=== PATIENT | male | born 1965 | race Caucasian/White ===

== ENCOUNTER 2017-09-06 07:41 | Day surgery (SDC) | payer OTHER ==
[2017-09-04 09:11] VITALS: BMI 30.7
[~2017-09-06 07:41] MED LIST: LACTATED RINGERS 1,000 ML IV SCH
[2017-09-06 08:12] VITALS: TEMP 97.9
[2017-09-06] MEDS ORDERED: LIDOCAINE 1% 20 ML VIAL (10MG/ML) FOR IV START INTRADERMA ONE (08:12)
[2017-09-06] MEDS ORDERED: LIDOCAINE 1% INJ 10MG/ML (20 ML MDV) ONE (08:32)
[2017-09-06] MEDS ORDERED: PROPOFOL 10 MG/ML 20 ML VIAL IV ONE (08:32)
--- NOTE | 2017-09-06 08:50 | P.PCN ---
Date of Procedure: 09/06/17 Procedure(s) Performed: BRIEF HISTORY: Patient is a 52-year-old pleasant white male, scheduled for an elective colonoscopy as a part of screening for colonic neoplasia. He has history of Crohn's disease diagnosed about 15 years ago last colonoscopy was several years ago. He remains in clinical remission. PROCEDURE PERFORMED: Colonoscopy with biopsy PREOPERATIVE DIAGNOSIS: Screening for colon cancer. IV sedation per Anesthesia. PROCEDURE: After informed consent was obtained, the patient, was brought into the endoscopy unit. IV sedation was administered by Anesthesia under continuous monitoring. Digital rectal examination was normal. Initially the Olympus CF- 160 flexible video colonoscope was then inserted in the rectum, gradually advanced into the right colon without any difficulty and the ileocolonic anastomosis was visualized. The anastomotic site appeared slightly narrowed with a few scattered erosions consistent with recurrent Crohn's disease. Biopsies were done from this area. The scope was advanced into the distal ileum that appeared normal. The mucosa of the ascending colon, transverse colon , descending colon, sigmoid colon, and rectum appeared normal. Retroflexion was performed in the rectum and no lesions were seen. The patient tolerated the procedure well. IMPRESSION: Mild narrowing of the ileocolonic anastomosis in the right colon with scattered erosions consistent with recurrent Crohn's disease Colon appeared normal with no evidence of colorectal neoplasia. RECOMMENDATIONS: Findings of this examination were discussed with the patient as well as his family. He was advised to follow with the biopsy results. He can have a repeat colonoscopy in 3-5 years
[2017-09-06 09:11] VITALS: BP 115/74; PULSE 66; RESP 16
== END 2017-09-06 09:51 | disposition home or self-care (01) ==
LOC: ORWHC2ENDO 07:41
PROVIDERS: ATTEND Internal Medicine Gastroenterology
DX: Z12.11 Encounter for screening for malignant neoplasm of colon (principal); K52.9 Noninfective gastroenteritis and colitis, unspecified; K50.90 Crohn's disease, unspecified, without complications; J45.909 Unspecified asthma, uncomplicated; K21.9 Gastro-esophageal reflux disease without esophagitis; Z79.899 Other long term (current) drug therapy
CPT/HCPCS: 88305; 45380; J2001; J2704

== ENCOUNTER 2021-10-13 20:11 | Emergency (ER) | payer OTHER ==
[2021-10-13 20:31] VITALS: BP 143/89; PULSE 72; RESP 18; TEMP 98.8
--- NOTE | 2021-10-13 21:38 | US ---
EXAMINATION TYPE: US venous doppler duplex LE RT DATE OF EXAM: 10/13/2021 9:25 PM COMPARISON: NONE CLINICAL HISTORY: swelling. Right lower extremity swelling for 1 day SIDE PERFORMED: Right TECHNIQUE: The lower extremity deep venous system is examined utilizing real time linear array sonog bo with graded compression, doppler sonography and color-flow sonography. VESSELS IMAGED: Common Femoral Vein Deep Femoral Vein Greater Saphenous Vein * Femoral Vein Popliteal Vein Small Saphenous Vein * Proximal Calf Veins (* superficial vessels) Right Leg: Negative for DVT IMPRESSION: No evidence of right lower extremity DVT.
--- NOTE | 2021-10-13 23:33 | ED ---
Lower Extremity Injury HPI - General Chief Complaint: Extremity Injury, Lower Stated Complaint: Swelling in RT leg Time Seen by Provider: 10/13/21 22:56 Source: patient Mode of arrival: ambulatory - History of Present Illness Initial Comments: Patient is a 56-year-old male presenting for evaluation of right leg swelling. Swelling is most prominent at the knee, but is notable along the entire course of the leg. Patient states he feels discomfort at the knee but not a distinct pain. He notes it feels like a "tightness" due to the swelling. Has been taking Advil which helps with pain with swelling. Last took 400mg advil at 6pm. Denies any recent injury. Patient states that his knee has been "bothering him" for a couple days now due to the nature of his job where he is frequently on his feet. Denies fever, chills, redness, loss of range of motion, numbness, tingling, chest pain, shortness of breath, palpitations, headache, vision or hearing changes, abdominal pain, nausea, vomiting, diarrhea. - Related Data Home Medications Medication Instructions Recorded Confirmed Albuterol Sulfate [Albuterol 2 puff INHALATION RT-Q4H PRN 10/13/21 10/13/21 Sulfate Hfa] Omeprazole Magnesium [PriLOSEC OTC] 20 mg PO DAILY PRN 10/13/21 10/13/21 Allergies Allergy/AdvReac Type Severity Reaction Status Date / Time No Known Allergies Allergy Verified 10/13/21 23:34 Review of Systems ROS Statement: Those systems with pertinent positive or pertinent negative responses have been documented in the HPI. ROS Other: All systems not noted in ROS Statement are negative. Past Medical History Past Medical History: GERD/Reflux Additional Past Medical History / Comment(s): Crohn's Disease,sob History of Any Multi-Drug Resistant Organisms: None Reported Past Surgical History: Bowel Resection Additional Past Surgical History / Comment(s): bowel [id number] Past Anesthesia/Blood Transfusion Reactions: No Reported Reaction Past Psychological History: No Psychological Hx Reported Smoking Status: Never smoker Past Alcohol Use History: None Reported Past Drug Use History: None Reported - Past Family History Mother Family Medical History: No Reported History General Exam Limitations: no limitations General appearance: alert, in no apparent distress Head exam: Present: atraumatic, normocephalic, normal inspection Eye exam: Present: normal appearance, PERRL, EOMI. Absent: scleral icterus, conjunctival injection, periorbital swelling Neck exam: Present: normal inspection Respiratory exam: Present: normal lung sounds bilaterally. Absent: respiratory distress, wheezes, rales, rhonchi, stridor Cardiovascular Exam: Present: regular rate, normal rhythm, normal heart sounds. Absent: systolic murmur, diastolic murmur, rubs, gallop, clicks Extremities exam: Present: full ROM, normal capillary refill, joint swelling (mild swelling of R knee). Absent: tenderness, pedal edema, calf tenderness Right Upper Leg exam: Present: normal inspection, full ROM. Absent: tenderness Knee exam: Present: full ROM, tenderness (mild), swelling, effusion, full knee extension. Absent: abrasion, laceration, ecchymosis, deformity, crepitus, dislocation, erythema Lower Leg exam: Present: full ROM, swelling (mild). Absent: tenderness, abrasion, erythema Ankle exam: Present: normal inspection, full ROM. Absent: tenderness, swelling Neurovascular tendon exam: Present: no vascular compromise. Absent: sensory deficit Back exam: Present: normal inspection. Absent: tenderness, paraspinal tenderness, vertebral tenderness Neurological exam: Present: alert, oriented X3, CN II-XII intact Psychiatric exam: Present: normal affect, normal mood Skin exam: Present: warm, dry, intact, normal color. Absent: rash Course Vital Signs 10/13/21 20:29 Temperature 98.8 F Pulse Rate 72 Respiratory 18 Rate Blood Pressure 143/89 O2 Sat by Pulse 95 Oximetry Medical Decision Making - Medical Decision Making Patient is a 56-year-old male presenting with chief complaint of right leg swelling. Swelling is localized around the knee with minor swelling above and below. There is some discomfort. No redness, recent injury, puncture wound, fever, chills, tachycardia. On exam there is full range of motion, neurovascularly intact. Doppler of right leg was negative for DVT. Lab work was negative for gout for infection. X-ray show no acute fracture or dislocation. Discomfort and swelling likely due to overuse injury. Patient follows up with orthopedics and was instructed to follow-up in one to 2 days. Take Motrin and Tylenol at home as needed for pain control. Educated patient on rest, ice, compression, elevation. Provided patient with Edy wrap. Thoroughly discussed return parameters. Answered all questions. Patient conveyed verbal understanding and agreed to the plan. My attending was Dr. Evangelista. - Lab Data Result diagrams: 10/13/21 23:04 10/13/21 23:04 Lab Results 10/13/21 10/13/21 Range/Units 23:04 23:04 WBC 7.5 (3.8-10.6) k/uL RBC 4.59 (4.30-5.90) m/uL Hgb 15.1 (13.0-17.5) gm/dL Hct 44.1 (39.0-53.0) % MCV 96.1 (80.0-100.0) fL MCH 32.8 (25.0-35.0) pg MCHC 34.2 (31.0-37.0) g/dL RDW 12.5 (11.5-15.5) % Plt Count 235 (150-450) k/uL MPV 7.1 Neutrophils % 57 % Lymphocytes % 24 % Monocytes % 10 % Eosinophils % 4 % Basophils % 1 % Neutrophils # 4.3 (1.3-7.7) k/uL Lymphocytes # 1.8 (1.0-4.8) k/uL Monocytes # 0.7 (0-1.0) k/uL Eosinophils # 0.3 (0-0.7) k/uL Basophils # 0.1 (0-0.2) k/uL Sodium 139 (137-145) mmol/L Potassium 4.3 (3.5-5.1) mmol/L Chloride 105 (98-107) mmol/L Carbon Dioxide 22 (22-30) mmol/L Anion Gap 12 mmol/L BUN 20 (9-20) mg/dL Creatinine 1.09 (0.66-1.25) mg/dL Est GFR (CKD-EPI)AfAm 89 (>60 ml/min/1.73 sqM) Est GFR (CKD-EPI)NonAf 77 (>60 ml/min/1.73 sqM) Glucose 143 H (74-99) mg/dL Uric Acid 5.3 (3.5-8.5) mg/dL Calcium 9.4 (8.4-10.2) mg/dL Total Bilirubin 0.6 (0.2-1.3) mg/dL AST 24 (17-59) U/L ALT 27 (4-49) U/L Alkaline Phosphatase 79 (38-126) U/L C-Reactive Protein <0.5 (<1.0) mg/dL Total Protein 7.7 (6.3-8.2) g/dL Albumin 4.3 (3.5-5.0) g/dL - Radiology Data Radiology results: report reviewed Right knee x-ray: Negative for fracture or dislocation. Disposition Clinical Impression: Knee strain, Knee effusion Disposition: HOME SELF-CARE Condition: Good Instructions (If sedation given, give patient instructions): Osteoarthritis (DC), Swollen Knee Joint (ED), Knee Pain (ED) Additional Instructions: Follow-up with orthopedics in one to 2 days. Follow-up with primary care within the week. Take Motrin and Tylenol at home as needed for pain control. Rest, ice, compression with Edy wrap, elevate the knee. Report back to ER if any worsening symptoms or new onset alarming symptoms, including but not limited to loss of full range of motion of the knee, increased pain, increased swelling, redness, fever, chills. Is patient prescribed a controlled substance at d/c from ED?: No Referrals: Claudio Hurst MD [Primary Care Provider] - 10/21/21 Time of Disposition: 00:45
--- NOTE | 2021-10-13 23:37 | XR ---
EXAMINATION TYPE: XR knee complete RT DATE OF EXAM: 10/13/2021 COMPARISON: NONE HISTORY: Knee pain and swelling TECHNIQUE: 3 views FINDINGS: There is no fracture nor dislocation. Joint spaces are normal. There is no sign of a joint effusion. IMPRESSION: Negative right knee exam.
[2021-10-13 23:56] LABS: Basophils # (A) 0.1 k/uL (0-0.2); Basophils % (A) 1 %; Eosinophils # (A) 0.3 k/uL (0-0.7); Eosinophils % (A) 4 %; HCT 44.1 % (39.0-53.0); HGB 15.1 gm/dL (13.0-17.5); Lymphocytes # (A) 1.8 k/uL (1.0-4.8); Lymphocytes % (A) 24 %; MCH 32.8 pg (25.0-35.0); MCHC 34.2 g/dL (31.0-37.0); MCV 96.1 fL (80.0-100.0); Mean Platelet Volume 7.1; Monocytes # (A) 0.7 k/uL (0-1.0); Monocytes % (A) 10 %; Neutrophils # (A) 4.3 k/uL (1.3-7.7); Neutrophils % (A) 57 %; Platelet Count 235 k/uL (150-450); RBC 4.59 m/uL (4.30-5.90); RDW 12.5 % (11.5-15.5); WBC 7.5 k/uL (3.8-10.6)
[2021-10-14 00:15] LABS: ALT 27 U/L (4-49); AST 24 U/L (17-59); African American GFR (CKD) 89 (>60 ml/min/1.73 sqM); Albumin 4.3 g/dL (3.5-5.0); Alkaline Phosphatase 79 U/L (38-126); Anion Gap 12 mmol/L; Blood Urea Nitrogen 20 mg/dL (9-20); C Reactive Protein <0.5 mg/dL (<1.0); Calcium 9.4 mg/dL (8.4-10.2); Carbon Dioxide 22 mmol/L (22-30); Chloride 105 mmol/L (98-107); Glucose 143 mg/dL (74-99); Non-African American GFR(CKD) 77 (>60 ml/min/1.73 sqM); Potassium 4.3 mmol/L (3.5-5.1); Sodium 139 mmol/L (137-145); Total Bilirubin 0.6 mg/dL (0.2-1.3); Total Protein 7.7 g/dL (6.3-8.2); Uric Acid 5.3 mg/dL (3.5-8.5)
[2021-10-14 01:48] LABS: Erythrocyte Sedimentation Rate 7 mm/hr (0-15)
== END 2021-10-14 00:58 | disposition home or self-care (01) ==
LOC: EC 20:11
DX: S86.811A Strain of other muscle(s) and tendon(s) at lower leg level, right leg, initial encounter (principal); M25.461 Effusion, right knee; K21.9 Gastro-esophageal reflux disease without esophagitis; Z79.899 Other long term (current) drug therapy; X58.XXXA Exposure to other specified factors, initial encounter
CPT/HCPCS: 36415; 80053; 84550; 85025; 85652; 86140; 99284

== ENCOUNTER → 2024-10-18 | Outpatient (CLI) | payer OTHER ==
[2024-10-18 14:49] LABS: HCT 47.9 % (39.6-50.0); HGB 16.1 g/dL (13.0-17.0); MCH 31.4 pg (27.0-32.0); MCHC 33.6 g/dL (32.0-37.0); MCV 93.4 FL (80.0-97.0); Mean Platelet Volume 9.7 FL (9.5-12.2); NRBC Per 100 WBC 0 X 10*3/uL (0.00-0.01); Platelet Count 235 X 10*3/uL (140-440); RBC 5.13 X 10*6/uL (4.40-5.60); RDW 12.2 % (11.5-14.5); WBC 14.15 X 10*3/uL (4.50-10.00)
[2024-10-18 15:15] LABS: Blood Urea Nitrogen 13.1 mg/dL (9.0-27.0); Chloride 103 mmol/L (96-109); Chol/HDL Ratio 4.83 Ratio; Glucose 125 mg/dL (70-110); LDL Cholesterol,Calculated 170.1 mg/dL (0.0-131.0); Potassium 4.3 mmol/L (3.5-5.5); Sodium 139 mmol/L (135-145)
[2024-10-18 15:16] LABS: ALT 27 U/L (10-49); AST 18 U/L (14-35); Albumin 4.3 g/dL (3.8-4.9); Albumin/Globulin Ratio 1.59 Ratio (1.60-3.17); Alkaline Phosphatase 94 U/L (41-126); Calcium 9.6 mg/dL (8.7-10.3); Carbon Dioxide 23.8 mmol/L (21.6-31.8); Globulin 2.7 g/dL (1.6-3.3); Total Bilirubin 0.7 mg/dL (0.3-1.2)
== END | disposition home or self-care (01) ==
LOC: LABWHC1 10:34
PROVIDERS: ATTEND Family Medicine
DX: Z00.00 Encounter for general adult medical examination without abnormal findings (principal)
CPT/HCPCS: 36415; 80053; 80061; 84153; 85027

== ENCOUNTER → 2024-10-24 | Outpatient (CLI) | payer OTHER | END | disposition home or self-care (01) | LOC: LABWHC1 11:28 | PROVIDERS: ATTEND Family Medicine | DX: R73.01 Impaired fasting glucose (principal) | CPT/HCPCS: 36415; 83036 ==